=== PATIENT | male | born 1965 | race Caucasian/White ===

== ENCOUNTER → 2024-09-29 | Outpatient (CLI) | payer BC, OTHER ==
[~2024-09-29] MED LIST: ASCO500 PO; B Complete1 EACH PO; CYCL10 PO; Cyclobenzaprine5 MG PO; D3 + K2 Dots 11 EACH PO; DIVA500EC PO; LAMO100 PO; LITH450ER PO; MAGNESIUM250 MG PO; MELO7.5 PO; NAPR500 PO; POTCIT5 PO; TRAM50; VENL75ER; Zofran Odt4 MG SL; [UNRECOGNIZED DRUG - OTHER] PO
[2024-10-04 10:34] LABS: 6-ACETYLMORPHINE, URN, QUANT <10 ng/mL; CODEINE, URN, QUANT <20 ng/mL; HYDROCODONE, URN, QUANT <20 ng/mL; HYDROMORPHONE, URN, QUANT <20 ng/mL; MORPHINE, URN, QUANT <20 ng/mL; NORHYDROCODONE, URN, QUANT <20 ng/mL; NOROXYCODONE, URN, QUANT <20 ng/mL; NOROXYMORPHONE, URN, QUANT <20 ng/mL; OXYCODONE, URN, QUANT <20 ng/mL; OXYMORPHONE, URN, QUANT <20 ng/mL
== END ==
LOC: LAB SHORT 15:56 → LAB 15:56
PROVIDERS: Family Medicine
DX: Z51.81 Encounter for therapeutic drug level monitoring (principal); Z79.899 Other long term (current) drug therapy
CPT/HCPCS: G0480

== ENCOUNTER 2025-01-24 18:52 | Emergency (ER) | payer OTHER ==
[~2025-01-24] VITALS: Ht 170.2 cm; Wt 90.7 kg
[2025-01-24 18:58] VITALS: BP 178/84
== END 2025-01-24 19:06 | disposition home or self-care (01) ==
LOC: ER 18:52
DX: T85.192D Other mechanical complication of implanted electronic neurostimulator of spinal cord electrode (lead), subsequent encounter (principal); F17.200 Nicotine dependence, unspecified, uncomplicated; Z79.899 Other long term (current) drug therapy; Z79.890 Hormone replacement therapy; Z79.891 Long term (current) use of opiate analgesic; Z79.51 Long term (current) use of inhaled steroids; Z79.52 Long term (current) use of systemic steroids; Z79.83 Long term (current) use of bisphosphonates
CPT/HCPCS: 99282

== ENCOUNTER → 2025-07-15 | Outpatient (CLI) | payer OTHER ==
[2025-07-19 12:05] LABS: PHENCYCLIDINE (PCP),URN,QUANT <10 ng/mL
== END ==
LOC: LAB SHORT 18:42 → LAB 18:42
PROVIDERS: Family Medicine
DX: Z51.81 Encounter for therapeutic drug level monitoring (principal); Z79.899 Other long term (current) drug therapy
CPT/HCPCS: G0480

== ENCOUNTER 2025-09-22 21:55 | Emergency (ER) | payer OTHER ==
[~2025-09-22] VITALS: Ht 170.2 cm; Wt 81.7 kg
[2025-09-22 22:04] VITALS: BP 165/94
== END 2025-09-22 22:11 ==
LOC: ER 21:55
DX: Z02.89 Encounter for other administrative examinations (principal); F17.200 Nicotine dependence, unspecified, uncomplicated; Z79.899 Other long term (current) drug therapy
CPT/HCPCS: 99282